=== PATIENT | female | born 1970 | race Two or more races ===

== ENCOUNTER 2022-08-26 18:19 | Emergency (ER) | payer SELFPAY ==
[~2022-08-26] VITALS: Ht 137.2 cm; Wt 74.8 kg
--- NOTE | 2022-08-26 20:14 | NUR ---
PATIENT BIBSELF C/O CORRINE FLANK PAIN FOR OVER A MONTH. PATIENT IS A/O X 4, RR EVEN AND UNLABORED NO SOB NOTED. VSS. NO ACUTE DISTRESS NOTED. WILL CONTINUE TO MONITOR.
--- NOTE | 2022-08-26 20:27 | NUR ---
LAB AT BEDSIDE
[2022-08-26] MEDS ORDERED: KETOROLAC TROMETHAMINE INJ 30 MG/ML VIAL IV ONE (21:00)
[2022-08-26] MEDS ORDERED: SULFAMETH/TRIMETH 800/160 MG 1 UDTAB TABLET PO ONE (21:00)
[2022-08-26 21:05] LABS: BASOPHILS % (AUTO) 0.2 % (0.0-2.0); HEMATOCRIT 47 % (33-45); HEMOGLOBIN 15.5 g/dL (11.5-14.8); LYMPHOCYTES # (AUTO) 4.6 K/uL (0.8-4.8); LYMPHOCYTES % (AUTO) 48.9 % (20.0-44.0); MEAN CORPUSCULAR HGB CONC 33 g/dl (31.0-36.0); MEAN CORPUSCULAR VOLUME 92 fL (82-100); MONOCYTES # (AUTO) 0.6 K/uL (0.1-1.30); MONOCYTES % (AUTO) 6.4 % (2.0-12.0); NEUTROPHILS # (AUTO) 3.9 K/uL (1.8-8.9); NEUTROPHILS % (AUTO) 41.5 % (43.0-81.0); PLATELET COUNT (AUTO) 331 K/uL (150-450); RED BLOOD CELL COUNT(AUTO) 5.07 MIL/uL (4.0-5.2); WHITE BLOOD COUNT (AUTO) 9.4 K/uL (4.3-11.0)
[2022-08-26 21:16] LABS: CALCIUM, SERUM 9.6 mg/dL (8.5-10.1); CREATININE 0.6 mg/dL (0.6-1.3); POTASSIUM 3.7 mmol/L (3.5-5.1)
[2022-08-26 21:24] LABS: ALBUMIN 3.6 g/dL (3.4-5.0); BILIRUBIN,DIRECT 0.1 mg/dL (0.0-0.2); BILIRUBIN,TOTAL 0.3 mg/dL (0.2-1.0); TOTAL PROTEIN, SERUM 8.2 g/dL (6.4-8.2)
[2022-08-26] MEDS ORDERED: CEPHALEXIN MONOHYDRATE 500 MG CAPSULE PO ONE ×2 (21:30→22:17)
[2022-08-26 21:51] LABS: BILIRUBIN,URINE NEGATIVE (NEGATIVE); COLOR,URINE YELLOW (YELLOW); LEUKOCYTE ESTERASE ,URINE 1+ (NEGATIVE); NITRITE, URINE NEGATIVE (NEGATIVE); PROTEIN,URINE NEGATIVE (NEGATIVE); UGLUCOSE 3+ mg/dL (NEGATIVE); UROBILINOGEN,URINE 0.2 EU/dL (0.2)
[2022-08-26] MEDS ORDERED: KETOROLAC TROMETHAMINE INJ 60 MG/2 ML VIAL IM ONE (22:00)
[2022-08-26] MEDS ORDERED: CEPH500C2 PO (22:01)
[2022-08-26] MEDS ORDERED: SULF1TAB48 PO (22:01)
[2022-08-26] MEDS ORDERED: KETOROLAC TROMETHAMINE INJ 30 MG/ML VIAL ONE (22:17)
[2022-08-26] MEDS ORDERED: SULFAMETH/TRIMETH 800/160 MG 1 UDTAB TABLET ONE (22:17)
[2022-08-26 22:35] VITALS: BP 145/84
[2022-08-26 22:40] LABS: BACTERIA,URINE 2+ /HPF (None Seen)
== END 2022-08-26 22:36 | disposition home or self-care (01) ==
LOC: ER 18:21
DX: N76.2 Acute vulvitis (principal); E11.9 Type 2 diabetes mellitus without complications; Z60.2 Problems related to living alone
CPT/HCPCS: 99284; 74176; 96372; 85025; 80048; 87086 ×2; 80076; 81001; 36415; J1885

== ENCOUNTER 2022-09-02 18:40 | Emergency (ER) | payer SELFPAY ==
[~2022-09-02] VITALS: Ht 127 cm; Wt 90.7 kg
[~2022-09-02 18:40] MED LIST: CEPH500C2 PO; SULF1TAB48 PO
--- NOTE | 2022-09-02 20:35 | NUR ---
URINE SPECIMEN SENT TO LAB
--- NOTE | 2022-09-02 20:35 | NUR ---
FABIO. ABDOMINAL PAIN X 2 HRS. "NOT FEELING WELL". PATIENT IS AAOX4, ABLE TO MAKE NEEDS KNOWN. AMBULATORY. PLACED COMFORTABLY IN BED. VITALS CHECKED.
--- NOTE | 2022-09-02 20:43 | NUR ---
ACCUCHECK DONE BS OF 358mg/dl. MD AWARE
--- NOTE | 2022-09-02 20:45 | NUR ---
[employer] SUPERVISOR AT BEDSIDE
[2022-09-02] MEDS ORDERED: IV NS 0.9% 1,000 ML BAG IV ONE (21:00)
[2022-09-02] MEDS ORDERED: ONDANSETRON HCL/PF 4 MG/2 ML VIAL IVP ONE (21:00)
[2022-09-02 21:03] LABS: BASOPHILS % (AUTO) 0.1 % (0.0-2.0); EOSINOPHILS % (AUTO) 0.7 % (0.0-6.0); HEMATOCRIT 49 % (33-45); HEMOGLOBIN 16.1 g/dL (11.5-14.8); LYMPHOCYTES # (AUTO) 0.6 K/uL (0.8-4.8); MEAN CORPUSCULAR HGB CONC 33 g/dl (31.0-36.0); MEAN CORPUSCULAR VOLUME 92 fL (82-100); MONOCYTES # (AUTO) 0.1 K/uL (0.1-1.30); MONOCYTES % (AUTO) 0.9 % (2.0-12.0); NEUTROPHILS # (AUTO) 6.7 K/uL (1.8-8.9); NEUTROPHILS % (AUTO) 90.3 % (43.0-81.0); PLATELET COUNT (AUTO) 240 K/uL (150-450); RED BLOOD CELL COUNT(AUTO) 5.29 MIL/uL (4.0-5.2); WHITE BLOOD COUNT (AUTO) 7.4 K/uL (4.3-11.0)
[2022-09-02 21:10] LABS: BILIRUBIN,URINE NEGATIVE (NEGATIVE); COLOR,URINE YELLOW (YELLOW); NITRITE, URINE NEGATIVE (NEGATIVE); PROTEIN,URINE NEGATIVE (NEGATIVE); UGLUCOSE 3+ mg/dL (NEGATIVE); UROBILINOGEN,URINE 0.2 EU/dL (0.2)
[2022-09-02 21:28] LABS: ALANINE AMINOTRANSFERASE 37 U/L (12-78); ALBUMIN 3.2 g/dL (3.4-5.0); ALKALINE PHOSPHATASE 153 U/L (46-116); ASPARTATE AMINOTRANSFERASE 39 U/L (15-37); BILIRUBIN,DIRECT 0.1 mg/dL (0.0-0.2); BILIRUBIN,TOTAL 0.3 mg/dL (0.2-1.0); CALCIUM, SERUM 9.2 mg/dL (8.5-10.1); CARBON DIOXIDE 22 mmol/L (21-32); CHLORIDE 99 mmol/L (98-107); CREATININE 0.7 mg/dL (0.6-1.3); GLUCOSE 347 mg/dL (74-106); LIPASE 110 U/L (73-393); POTASSIUM 3.5 mmol/L (3.5-5.1); SODIUM SERUM 132 mmol/L (136-145); TOTAL PROTEIN, SERUM 7.9 g/dL (6.4-8.2); UREA NITROGEN, BLOOD 13 mg/dL (7-18)
[2022-09-02 21:28] LABS: BACTERIA,URINE 1+ /HPF (None Seen); RBC,URINE 0-2 /HPF (0-2); SQUAMOUS EPITHELIAL CELL,UR Few /HPF (None Seen); WBC,URINE 21-50 /HPF (0-3)
[2022-09-02 21:30] LABS: LEUKOCYTE ESTERASE ,URINE 1+ (NEGATIVE)
[2022-09-02] MEDS ORDERED: ONDANSETRON HCL/PF 4 MG/2 ML VIAL ONE (21:33)
--- NOTE | 2022-09-02 21:50 | NUR ---
IV CANNULA G20 INSERTED ON LEFT FA.
--- NOTE | 2022-09-02 21:50 | NUR ---
COVID SWAB DONE AND SENT TO LAB
[2022-09-02] MEDS ORDERED: IV NS 0.9% 1,000 ML IV ONE (22:30)
--- NOTE | 2022-09-02 23:22 | NUR ---
MARK WHITE AT BEDSIDE
[2022-09-03] MEDS ORDERED: CEFTRIAXONE 1 G in IV D5W 50 ML IV ONE (00:30)
[2022-09-03] MEDS ORDERED: ONDA4TAB5 PO (00:38)
[2022-09-03] MEDS ORDERED: CEPH500C2 PO (00:38)
[2022-09-03] MEDS ORDERED: CEFTRIAXONE 1GM BAG (ER ONLY) 50 ML IV ONE (01:51)
--- NOTE | 2022-09-03 03:13 | NUR ---
IV CANNULA REMOVED
--- NOTE | 2022-09-03 03:14 | NUR ---
Patient discharged to home in stable condition. Written and verbal after care instructions given. Patient verbalizes understanding of instruction.
[2022-09-03 03:16] VITALS: BP 117/79
== END 2022-09-03 03:16 | disposition home or self-care (01) ==
LOC: ER 18:42
DX: R10.9 Unspecified abdominal pain (principal); R11.0 Nausea; E11.65 Type 2 diabetes mellitus with hyperglycemia; N39.0 Urinary tract infection, site not specified; R00.0 Tachycardia, unspecified; R79.1 Abnormal coagulation profile; Z20.822 Contact with and (suspected) exposure to COVID-19; R74.01 Elevation of levels of liver transaminase levels; I10 Essential (primary) hypertension
CPT/HCPCS: 99285; 74176; 76705; 71045; 96361; 96375; 87426; 93005; 85025; 80048; 87086; 83690; 80076; 85378; 84703; 81001; 36415 ×2; 84484 ×2; 82962; 96365; 71275; 84443; J2405; J7030 ×2; C9803; J0696